=== PATIENT | male | born 1960 | race Caucasian/White ===

== ENCOUNTER 2025-09-04 09:49 | Emergency (ER) | payer MEDICARE, OTHER, SELFPAY ==
[2025-09-04 09:56] VITALS: BP 184/114
[2025-09-04 10:14] VITALS: BMI 28.2
--- NOTE | 2025-09-04 10:17 | EDRN ---
Roberta James PA in room w/pt.
--- NOTE | 2025-09-04 10:44 | ED.GENMED ---
History of Present Illness
General
Chief Complaint: Musculo-Skeletal Complaint
Source: patient
Time Seen by Provider: 09/04/25 10:10
History of Present Illness
History of Present Illness:
65-year-old male with past medical history of atrial fibrillation hypertension presenting to the ER at the request of his primary care provider for evaluation of left lower extremity pain that began acutely this morning while patient was bending
over assembling a piece of furniture noting the sudden onset and severe pain with inability to ambulate or put pressure on the left leg with most of his symptoms now subsiding noting he is able to fully range of motion the left leg and was able to
ambulate without any limp. Patient's primary was concern for possible DVT and wanted patient to obtain an ultrasound. Patient has no risk factors for DVT. No other concerns presently.
Past History
Past History
ED Past Medical History: Arrthythmia and HTN
ED Past Surgical History: None
Social History
Tobacco: Non-smoker
Alcohol: Occasional
Drug: None
Personal:
Living: with family
Review of Systems
Review of Systems
All Other Systems: ROS reviewed and negative except as documented in HPI and ROS
Phy Exam
Physical Exam
Physical Exam:
GENERAL: Alert , in no apparent distress
EYE: conjunctiva clear
Head: Normocephalic atraumatic
NECK: Supple,
ENT: mmm.
LUNGS: no acute respiratory distress
NEUROLOGICAL: Alert and oriented
SKIN: Warm and dry, skin intact.
MUSCULOSKELETAL: well perfused. Full range of motion of the left lower extremity, no focal areas of tenderness, no edema, no overlying erythema. Patient has easily palpable pedal and tibial pulses. Cap refill less than 2 seconds and sensation is
grossly intact to light touch.
PSYCH: Normal and appropriate interaction.
Scores
Heart Failure Risk
Heart Failure Risk Score: Not Applicable
Heart Score for Chest Pain Patients
STEMI patient?: Not applicable
Withdrawal Assessment of Alcohol
Withdrawal Assessment Completed?: Not applicable
Course
Orders/Labs/Results
Orders:
Orders
09/04/25 10:18
US Periph Venous LOWER Ext LT Urgent
Comment:
Reason For Exam: pain
Vital Signs
Initial and Last Documented VS:
Initial Vital Signs
Temp Pulse Resp BP Pulse Ox
98.5 F 110 18 184/114 98
09/04/25 09:56 09/04/25 09:56 09/04/25 09:56 09/04/25 09:56 09/04/25 09:56
Last Documented Vital Signs
Temp Pulse Resp BP Pulse Ox
98.5 F 77 16 164/78 97
09/04/25 09:56 09/04/25 11:25 09/04/25 11:25 09/04/25 11:25 09/04/25 11:25
MDM/Problems Addressed
Differential Diagnosis Includes:
Muscle strain
Muscle cramp
Minimal concern for DVT
No signs of trauma or mechanism for fracture/dislocation
No signs to suggest arterial/vascular compromise
MDM/Problems Addressed:
65-year-old male presenting to the ER for evaluation of a sudden onset of left lower extremity pain that began while putting together furniture. Symptoms have seemingly all resolved. Sent to the ER by primary care provider for ultrasound to rule
out DVT although my suspicion for DVT is quite low. Anticipate discharge home following completion of exam.
*Radiology
Radiology exam reviewed: radiology read reviewed
*Pulse Oximetry
SaO2: 98
Oxygen Mode of Delivery: Room air
Patient hypoxic: no
*Critical Care Note
Total Time (30-74mins, 75-104mins- exclusive of procedures): Not Applicable
Patient Management
Escalation/DeEscalation of care consider admission/obs:
Ultrasound negative for DVT. Patient stable for discharge home and will follow-up with primary care provider.
ED Attending Note
-
Portions of this chart may have been created with voice recognition software.� Occasional wrong word or��sound alike� substitutions may have occurred due to the inherent limitations of voice recognition software.
Discharge Plan
Departure
Patient Disposition: Home (Routine Discharge)
Date of Disposition: 09/04/25
Time of Disposition: 11:16
Patient with high blood pressure during this ER visit?: Yes
Discharge Problem:
Muscle strain
Instructions: Muscle Strain (DC)
Interventions
Interventions:
*Risk Screen - Suicide Last Done: 09/04/25 09:56
*General Assessment Last Done: 09/04/25 10:14
*Neglect/Abuse Screening Last Done: 09/04/25 10:14
*ED- Fall Risk Assessment Last Done: 09/04/25 10:14
*ED COVID-19 Vaccine History Last Done: 09/04/25 10:14
*ED Influenza Vaccine History Last Done: 09/04/25 10:14
*Nursing Disposition Last Done: 09/04/25 11:25
ED-Musculoskeletal Assessment Last Done: 09/04/25 10:14
Discharge Date and Time
Discharge Date/Time: 09/04/25 11:34
Print Language: YORUBA
--- NOTE | 2025-09-04 11:20 | EDRN ---
Roberta James PA in to see pt.
[2025-09-04 11:25] VITALS: BP 164/78
== END 2025-09-04 11:34 | disposition home or self-care (01) ==
LOC: EMR 09:49
PROVIDERS: EMERGENCY PHYSICIAN Emergency Medicine; FAMILY PHYSICIAN Family Medicine
DX: M79.662 Pain in left lower leg (principal); I10 Essential (primary) hypertension; I48.91 Unspecified atrial fibrillation
CPT/HCPCS: 99284; 93971